=== PATIENT | male | born 1985 | race African-American/Black ===

== ENCOUNTER 2018-11-18 15:21 | Inpatient (IN) | payer OTHER ==
[~2018-11-18] VITALS: Ht 175.3 cm; Wt 90.7 kg
[2018-11-18] MEDS ORDERED: SODIUM CHLORIDE 0.9% 1,000 ML IV ONE (15:43)
[2018-11-18] MEDS ORDERED: HYDROCODONE/ACETAMINOPHEN 5/325MG TABLET PO ONE (15:45)
[2018-11-18 16:29] LABS: BASOPHILS % 0.4 % (0.0-2.0); HEMATOCRIT. 51.3 % (42.0-52.0); HEMOGLOBIN. 17.4 g/dL (14.0-18.0); MEAN CORPUSCULAR HEMOGLOBIN 28.1 pg (28.0-32.0); MEAN CORPUSCULAR VOLUME 82.9 fL (80.0-94.0); MEAN PLATELET VOLUME 9.7 fl (7.4-10.4); MONOCYTES % 11.3 % (2.0-8.0); NEUTROPHILS % 73.3 % (40.0-76.0); PLATELET 217 x1000/uL (130-400); RED BLOOD CELL COUNT 6.19 mill/uL (4.7-6.1); RED CELL DISTRIBUTION WIDTH 14.6 % (11.6-14.6)
[2018-11-18 16:32] LABS: PROTHROMBIN TIME 10.7 sec (9.6-11.0)
[2018-11-18 16:37] LABS: CHLORIDE 106 mEq/L (98-107)
[2018-11-18] MEDS ORDERED: DIATR MEGLU/DIATRIZOATE SOLN 30ML ONE (18:25)
[2018-11-18] MEDS ORDERED: IOHEXOL-300 100 ML BOTTLE ONE (21:17)
[2018-11-18] MEDS ORDERED: SODIUM CHLORIDE 0.9% 1,000 ML IV SCH (21:47)
[2018-11-18] MEDS ORDERED: ACETAMINOPHEN 325MG TABLET PO PRN (22:00)
[2018-11-18] MEDS ORDERED: HYDROCODONE/ACETAMINOPHEN 5/325MG TABLET PO PRN ×2 (22:00)
[2018-11-18] MEDS ORDERED: ONDANSETRON HCL 4MG/2ML INJ IV PRN (22:00)
[2018-11-18 22:15] VITALS: BP 129/87
[2018-11-19] MEDS: DEXT 5%/0.45% NACL 1000ML 1,000 ML IV SCH ×3 (00:56→16:45)
[2018-11-19 04:00] VITALS: BP 114/54
[2018-11-19] MEDS: FAMOTIDINE 20MG/2ML VIAL IV SCH ×2 (08:58→20:02)
[2018-11-19] MEDS ORDERED: DIATR MEGLU/DIATRIZOATE SOLN 30ML PO SCH (11:45)
[2018-11-19] MEDS ORDERED: LACTULOSE 20G/30ML UDC PO SCH ×2 (11:45→15:45)
[2018-11-19 12:00] VITALS: BP 144/112
[2018-11-19 16:00] VITALS: BP 152/82
[2018-11-19 20:00] VITALS: BP 145/83
[2018-11-20] VITALS: BP 151/78
[2018-11-20] MEDS: FAMOTIDINE 20MG/2ML VIAL IV SCH (10:02)
[2018-11-20] MEDS ORDERED: BARIUM SULFATE(VOLUMEN) 450 ML ORAL.SUSP ONE (10:23)
[2018-11-20 12:00] VITALS: BP 127/98
[2018-11-20] MEDS: DEXT 5%/0.45% NACL 1000ML 1,000 ML IV SCH (13:57)
[2018-11-20] MEDS ORDERED: IOHEXOL-350 100 ML BOTTLE ONE (15:34)
[2018-11-20 16:00] VITALS: BP 137/88
[2018-11-21 05:19] LABS: HIV SCREEN 4G Non Reactive (Non Reactive)
== END 2018-11-20 18:45 | disposition left against medical advice (07) | DRG 389 ==
LOC: ER 15:21 → 6EST 19:56 → ENRESERV 20:56
PROVIDERS: ADMIT Internal Medicine; ATTEND Internal Medicine
DX: K56.1 Intussusception (principal); R65.10 Systemic inflammatory response syndrome (SIRS) of non-infectious origin without acute organ dysfunction; Z53.21 Procedure and treatment not carried out due to patient leaving prior to being seen by health care provider; Z98.890 Other specified postprocedural states
CPT/HCPCS: 36415; 74176; 74177; 87389; 87493; 96360; 99285; J2405; J3490; J7030; Q9963; Q9967